=== PATIENT | female | born 2000 | race Two or more races ===

== ENCOUNTER 2021-06-28 05:38 | Emergency (ER) | payer OTHER ==
[~2021-06-28] VITALS: Ht 157.5 cm; Wt 52.2 kg
[2021-06-28] MEDS ORDERED: ONDANSETRON HCL 4 MG ORAL DISINTEGRATING TAB PO ONE (06:00)
[2021-06-28] MEDS ORDERED: ONDANSETRON HCL 4 MG ORAL DISINTEGRATING TAB ONE (06:06)
== END 2021-06-28 06:14 | disposition home or self-care (01) ==
LOC: ER 05:51
DX: U07.1 COVID-19 (principal); R11.2 Nausea with vomiting, unspecified
CPT/HCPCS: 99282; Q0162